=== PATIENT | female | born 1965 | race Caucasian/White ===

== ENCOUNTER 2018-05-09 18:56 | Emergency (ER) | payer MEDICAID ==
[~2018-05-09] VITALS: Ht 152.4 cm; Wt 72.7 kg
[2018-05-09] MEDS ORDERED: LEFL10TA15 PO (19:42)
[2018-05-09 22:19] VITALS: BP 142/87
== END 2018-05-09 22:22 | disposition home or self-care (01) ==
LOC: EMS 18:57
DX: K08.89 Other specified disorders of teeth and supporting structures (principal); R03.0 Elevated blood-pressure reading, without diagnosis of hypertension
CPT/HCPCS: 99283

== ENCOUNTER 2021-01-20 20:24 | Emergency (ER) | payer MEDICAID ==
[~2021-01-20] VITALS: Ht 152.4 cm; Wt 79.5 kg
[~2021-01-20 20:24] MED LIST: LEFL10TA15 PO
[2021-01-20] MEDS ORDERED: AMLO-258 PO (20:37)
[2021-01-20] MEDS ORDERED: FLUT15.812 NASAL (20:37)
[2021-01-20] MEDS ORDERED: LISI-892 PO (20:37)
[2021-01-20] MEDS ORDERED: CETI1SOL83 PO (20:37)
[2021-01-20 20:52] VITALS: BP 139/80
[2021-01-20] MEDS ORDERED: MAG HYDROX/AL HYDROX/SIMETH 30 ML SUSP UDCUP PO ONE (21:00)
[2021-01-20] MEDS ORDERED: ACETAMINOPHEN 500 MG TABLET PO ONE (21:00)
[2021-01-20] MEDS ORDERED: FAMOTIDINE 20 MG TABLET PO ONE (21:00)
[2021-01-20] MEDS ORDERED: ONDANSETRON HCL 4 MG TABLET PO ONE (21:00)
[2021-01-20 21:16] LABS: APPEARANCE,URINE CLEAR (CLEAR); BILIRUBIN,URINE NEGATIVE (NEGATIVE); GLUCOSE, URINE (UA) NEGATIVE (NEGATIVE); KETONES,URINE NEGATIVE (NEGATIVE); LEUKOCYTE ESTERASE ,URINE NEGATIVE (NEGATIVE); NITRATE,URINE NEGATIVE (NEGATIVE); OCCULT BLOOD,URINE NEGATIVE (NEGATIVE); PROTEIN,URINE NEGATIVE (NEGATIVE); UROBILINOGEN,URINE 0.2 mg/dL (<=1.0)
[2021-01-20 21:16] LABS: BASOPHILS % (AUTO) 0.7 % (0.0-2.0); EOSINOPHILS % (AUTO) 1.9 % (1.0-6.0); HEMATOCRIT 38.4 % (36-46); HEMOGLOBIN 12.5 g/dL (12.0-16.0); LYMPHOCYTES # (AUTO) 2.2 K/uL (1.0-4.8); LYMPHOCYTES % (AUTO) 42.2 % (22.0-44.0); MEAN CORPUSCULAR HEMOGLOBIN 28.4 pg (26.0-34.0); MEAN CORPUSCULAR HGB CONC 32.5 G/dL (31.0-37.0); MEAN CORPUSCULAR VOLUME 88 fL (80-100); MONOCYTES # (AUTO) 0.5 K/uL (0.1-1.0); MONOCYTES % (AUTO) 10.5 % (2.0-9.0); NEUTROPHILS # (AUTO) 2.3 K/uL (1.8-7.7); NEUTROPHILS % (AUTO) 44.7 % (40.0-70.0); PLATELET COUNT (AUTO) 188 K/uL (150-450); RED BLOOD CELL COUNT(AUTO) 4.38 MIL/uL (4.00-5.20)
[2021-01-20 21:23] LABS: ANION GAP 5 mmol/L (8-16); CALCIUM, TOTAL 9.3 mg/dL (8.8-10.5); CARBON DIOXIDE 30 mmol/L (22-29); CHLORIDE 102 mmol/L (98-107); CREATININE 0.74 mg/dL (0.60-1.30); GLOMERULAR FILTR. RATE CALC > 60 mL/min (>60); GLUCOSE,RANDOM 94 mg/dL (70-110); POTASSIUM 3.8 mmol/L (3.5-5.1); SODIUM SERUM 137 mmol/L (136-145); UREA NITROGEN, BLOOD 15 mg/dL (7-18)
[2021-01-20 21:29] LABS: ALANINE AMINOTRANSFERASE 34 U/L (12-78); ALKALINE PHOSPHATASE 74 U/L (46-116); ASPARTATE AMINOTRANSFERASE 20 U/L (15-37); BILIRUBIN,TOTAL 0.3 mg/dL (0.1-1.0); CREATINE KINASE, TOTAL ONLY 67 U/L (26-192); TOTAL PROTEIN, SERUM 7.3 g/dL (6.4-8.2)
== END 2021-01-20 21:53 | disposition home or self-care (01) ==
LOC: EMS 20:29
DX: R11.0 Nausea (principal); R30.0 Dysuria; M54.5 Low back pain; I10 Essential (primary) hypertension; Z90.710 Acquired absence of both cervix and uterus
CPT/HCPCS: 36415; 80053; 81003; 82550; 85025; 99284; Q0162

== ENCOUNTER 2021-04-20 19:25 | Emergency (ER) | payer MEDICAID ==
[~2021-04-20] VITALS: Ht 152.4 cm; Wt 79.5 kg
[~2021-04-20 19:25] MED LIST changes: +AMLO-258 PO; +CETI1SOL83 PO; +FLUT15.812 NASAL; -LEFL10TA15 PO; +LEFL10TA19 PO; +LISI-892 PO
[2021-04-20] MEDS ORDERED: HYDR25TA2 PO (19:39)
[2021-04-20 20:08] VITALS: BP 127/75
[2021-04-20] MEDS ORDERED: LISI-894 PO (20:10)
[2021-04-20] MEDS ORDERED: CETI-450 PO (20:10)
[2021-04-20] MEDS: NAPROXEN 250 MG TABLET PO ONE (20:28)
[2021-04-20] MEDS: DEXAMETHASONE SOD PHOS 4 MG/ML 5 ML VIAL IM ONE (20:28)
== END 2021-04-20 20:40 | disposition home or self-care (01) ==
LOC: EMS 19:32
DX: M06.811 Other specified rheumatoid arthritis, right shoulder (principal); I10 Essential (primary) hypertension; Z79.899 Other long term (current) drug therapy
CPT/HCPCS: 96372; 99283; J1100